=== PATIENT | male | born 1990 | race Caucasian/White ===

== ENCOUNTER 2022-10-21 16:25 | Emergency (ER) | payer SELFPAY ==
[~2022-10-21] VITALS: Ht 180.3 cm; Wt 99.3 kg
[2022-10-21 16:25] VITALS: BP 133/84
[2022-10-21] MEDS ORDERED: FLUORESCEIN OPHTH 1MG STRIP OD ONE (17:35)
[2022-10-21] MEDS ORDERED: BOOSTRIX VACCINE (TETANUS/DIPHTH/ACEL. PERTUSSIS) 0.5ML SYR IM ONE (17:35)
[2022-10-21] MEDS ORDERED: TETRACAINE 0.5% OPHTH SOLN 4ML OD ONE (17:35)
[2022-10-21] MEDS ORDERED: NORCO, ANEXSIA 5/325MG TABLET (HYDROcodone/ACETAMINOPHEN) PO ONE (17:50)
[2022-10-21] MEDS ORDERED: HYDR-3713 PO (18:05)
[2022-10-21] MEDS ORDERED: ERYTOIN8 OD (18:05)
[2022-10-21] MEDS ORDERED: NORCO 5/325MG TABLET (HOME DOSE PACK) PO ONE (18:15)
[2022-10-21] MEDS ORDERED: ERYTHROMYCIN OPHTH OINT OD ONE (18:15)
== END 2022-10-21 18:30 | disposition home or self-care (01) ==
LOC: M ED 16:25
DX: S05.01XA Injury of conjunctiva and corneal abrasion without foreign body, right eye, initial encounter (principal); X58.XXXA Exposure to other specified factors, initial encounter; Y92.89 Other specified places as the place of occurrence of the external cause; Y93.89 Activity, other specified; Y99.8 Other external cause status